=== PATIENT | female | born 1985 | race Asian ===

== ENCOUNTER → 2017-06-27 | Outpatient (CLI) | payer OTHER ==
[2017-06-27 18:04] LABS: MEAN CORPUSCULAR HEMOGLOBIN 28.1 pg (27.0-33.0); MEAN CORPUSCULAR HGB CONC 32.7 g/dl (32.0-36.5); PLATELET COUNT, AUTOMATED 174 10^3/uL (150-450); RED CELL DISTRIBUTION WIDTH 12.6 % (11.5-14.5); WHITE BLOOD COUNT 4.2 10^3/uL (4.0-10.0)
[2017-06-27 18:29] LABS: ALBUMIN 4.3 GM/DL (3.2-5.2); ALBUMIN/GLOBULIN RATIO 1.23 (1.00-1.93); ALKALINE PHOSPHATASE 34 U/L (45-117); ALT/SGPT 16 U/L (12-78); ANION GAP 7 MEQ/L (8-16); AST/SGOT 15 U/L (7-37); BILIRUBIN,TOTAL 0.6 MG/DL (0.2-1.0); BLOOD UREA NITROGEN 11 MG/DL (7-18); CARBON DIOXIDE LEVEL 30 MEQ/L (21-32); CHLORIDE LEVEL 105 MEQ/L (98-107); CREATININE FOR GFR 0.68 MG/DL (0.55-1.02); GLOMERULAR FILTRATION RATE > 60.0 (>60); GLUCOSE, FASTING 68 MG/DL (70-105); POTASSIUM SERUM 4.4 MEQ/L (3.5-5.1); SODIUM LEVEL 142 MEQ/L (136-145); TOTAL PROTEIN 7.8 GM/DL (6.4-8.2)
== END ==
LOC: M SMT 14:03
DX: Z13.0 Encounter for screening for diseases of the blood and blood-forming organs and certain disorders involving the immune mechanism (principal); Z13.29 Encounter for screening for other suspected endocrine disorder
CPT/HCPCS: 84443

== ENCOUNTER → 2017-07-01 | Outpatient (CLI) | payer OTHER | LOC: M RAD 16:18 | DX: N83.202 Unspecified ovarian cyst, left side (principal) | CPT/HCPCS: 76856 ==

== ENCOUNTER → 2017-10-29 | Outpatient (CLI) | payer OTHER | LOC: M RAD 14:34 | DX: D39.12 Neoplasm of uncertain behavior of left ovary (principal) ==

== ENCOUNTER → 2017-12-17 | Outpatient (CLI) | payer OTHER | LOC: M RAD 13:51 | DX: N83.202 Unspecified ovarian cyst, left side (principal); D39.11 Neoplasm of uncertain behavior of right ovary | CPT/HCPCS: 76856 ==

== ENCOUNTER → 2018-03-04 | Outpatient (CLI) | payer OTHER | LOC: M SMT 09:50 | DX: M25.542 Pain in joints of left hand (principal); W21.01XA Struck by football, initial encounter | CPT/HCPCS: 73130 ==

== ENCOUNTER 2018-04-16 01:36 | Day surgery (SDC) | payer OTHER ==
[2018-04-16] MEDS: NS 1,000 ML IV ×2 (02:00)
[2018-04-16 02:23] LABS: BASO % 0.2 % (0.0-1.0); HEMATOCRIT 35.2 % (36.0-47.0); HEMOGLOBIN 11.7 g/dl (12.0-15.5); IMMATURE GRANULOCYTE % 0.5 % (0-3.0); LYMPH # 1.7 10^3/uL (1.5-4.5); LYMPH % 7.6 % (24.0-44.0); MEAN CORPUSCULAR HEMOGLOBIN 29.9 pg (27.0-33.0); MEAN CORPUSCULAR HGB CONC 33.2 g/dl (32.0-36.5); MONO # 0.8 10^3/uL (0.0-0.8); MONO % 3.5 % (0.0-5.0); NEUTROPHILS # 19.6 10^3/uL (1.8-7.7); NEUTROPHILS % 88.2 % (36.0-66.0); PLATELET COUNT, AUTOMATED 254 10^3/uL (150-450); RED BLOOD COUNT 3.91 10^6/uL (4.00-5.40); RED CELL DISTRIBUTION WIDTH 12.7 % (11.5-14.5); WHITE BLOOD COUNT 22.2 10^3/uL (4.0-10.0)
[2018-04-16] MEDS: MORPHINE 4 MG/ML 1ML VIAL/SYRINGE (J2270) IV ×2 (02:51)
[2018-04-16 02:57] LABS: ALBUMIN 4.3 GM/DL (3.2-5.2); ALBUMIN/GLOBULIN RATIO 1.43 (1.00-1.93); ALKALINE PHOSPHATASE 33 U/L (45-117); ALT/SGPT 17 U/L (12-78); ANION GAP 13 MEQ/L (8-16); AST/SGOT 16 U/L (7-37); BILIRUBIN,DIRECT 0.2 MG/DL (0.0-0.2); BILIRUBIN,TOTAL 0.8 MG/DL (0.2-1.0); BLOOD UREA NITROGEN 13 MG/DL (7-18); CALCIUM LEVEL 8.9 MG/DL (8.5-10.1); CARBON DIOXIDE LEVEL 23 MEQ/L (21-32); CHLORIDE LEVEL 105 MEQ/L (98-107); CREATININE FOR GFR 0.81 MG/DL (0.55-1.30); GLOMERULAR FILTRATION RATE > 60.0 (>60); GLUCOSE, FASTING 194 MG/DL (70-100); LIPASE 100 U/L (73-393); POTASSIUM SERUM 4.1 MEQ/L (3.5-5.1); SODIUM LEVEL 141 MEQ/L (136-145); TOTAL PROTEIN 7.3 GM/DL (6.4-8.2)
[2018-04-16 03:09] LABS: CONTROL LINE HCG INT CTR LINE PRESENT; HCG, SERUM QUALITATIVE POSITIVE (NEGATIVE)
[2018-04-16] MEDS ORDERED: GASTROGRAFIN SOLUTION 30ML (Q9963) As Ordered ×2 (03:13)
[2018-04-16] MEDS: METOCLOPRAMIDE INJ 10MG/2ML VIAL (J2765) IV ×2 (03:16)
[2018-04-16] MEDS: GASTROGRAFIN SOLUTION 30ML (Q9963) PO ×8 (03:16→03:25)
[2018-04-16 03:24] LABS: HCG, SERUM QUANTITATIVE 13 MIU/ML
[2018-04-16] MEDS ORDERED: fentaNYL 250 MCG/5 ML INJECTION (J3010) As Ordered ×2 (04:51)
[2018-04-16] MEDS ORDERED: ROCURONIUM BROMIDE 50 MG/5 ML VIAL As Ordered ×2 (04:51)
[2018-04-16] MEDS ORDERED: LIDOCAINE 2% INJ 100 MG/5 ML SDV (FOR ANES.) As Ordered ×2 (04:51)
[2018-04-16] MEDS ORDERED: PROPOFOL 200 MG/20 ML VIAL As Ordered ×2 (04:51)
[2018-04-16] MEDS ORDERED: MIDAZOLAM INJ 2 MG/2 ML VIAL (J2250) As Ordered ×2 (04:51)
[2018-04-16] MEDS ORDERED: SUCCINYLCHOLINE 100 MG/5 ML SYRINGE (J0330) As Ordered ×2 (05:27)
[2018-04-16] MEDS ORDERED: PHENYLephrine HCL 500 MCG/5 ML (100MCG/ML) SYRINGE (J2370) As Ordered ×4 (05:38)
[2018-04-16] MEDS: BUPIVACAINE HCL 0.25% 30 ML VIAL As Ordered ×2 (05:39)
[2018-04-16] MEDS ORDERED: ONDANSETRON 4MG/2ML VIAL (J2405) As Ordered ×2 (06:03)
[2018-04-16] MEDS ORDERED: GLYCOPYRROLATE INJ 0.2 MG/ML 2 ML VIAL As Ordered ×2 (06:23)
[2018-04-16] MEDS ORDERED: NEOSTIGMINE 10 MG/10 ML VIAL (J2710) As Ordered ×2 (06:23)
[2018-04-16] MEDS ORDERED: KETOROLAC 60 MG/2 ML VIAL (J1885) As Ordered ×2 (06:23)
[2018-04-16] MEDS ORDERED: PERCOCET 5MG/325MG TAB PO ×6 (06:45→13:15)
[2018-04-16] MEDS ORDERED: ONDANSETRON 4MG/2ML VIAL (J2405) IV ×2 (06:45)
[2018-04-16] MEDS ORDERED: HYDROMORPHONE HCL 0.5 MG/ 0.5 ML SYRINGE (J1170 PER 1) IV ×2 (06:45)
[2018-04-16] MEDS ORDERED: fentaNYL 100 MCG/2 ML INJECTION (J3010) IV ×2 (06:45)
[2018-04-16 07:19] LABS: HEMATOCRIT 25.1 % (36.0-47.0); MEAN CORPUSCULAR HGB CONC 33.1 g/dl (32.0-36.5); MEAN CORPUSCULAR VOLUME 90.6 fl (80.0-96.0); RED BLOOD COUNT 2.77 10^6/uL (4.00-5.40); RED CELL DISTRIBUTION WIDTH 12.7 % (11.5-14.5); WHITE BLOOD COUNT 10.1 10^3/uL (4.0-10.0)
[2018-04-16 07:21] LABS: HEMOGLOBIN 8.3 g/dl (12.0-15.5); PLATELET COUNT, AUTOMATED 139 10^3/uL (150-450)
[2018-04-16 07:27] LABS: INR 1.21; PROTHROMBIN TIME 15.5 SECONDS (12.1-14.4)
[2018-04-16 07:28] LABS: FIBRINOGEN 172 MG/DL (221-452)
[2018-04-16] MEDS: LR 1,000 ML IV ×8 (08:45→20:18)
[2018-04-16 12:21] LABS: HEMATOCRIT 19.4 % (36.0-47.0); MEAN CORPUSCULAR HGB CONC 33.5 g/dl (32.0-36.5); MEAN CORPUSCULAR VOLUME 89.4 fl (80.0-96.0); PLATELET COUNT, AUTOMATED 120 10^3/uL (150-450); RED BLOOD COUNT 2.17 10^6/uL (4.00-5.40); RED CELL DISTRIBUTION WIDTH 12.7 % (11.5-14.5)
[2018-04-16 12:24] LABS: HEMOGLOBIN 6.5 g/dl (12.0-15.5)
[2018-04-16 12:29] LABS: INR 1.32; PROTHROMBIN TIME 16.6 SECONDS (12.1-14.4)
[2018-04-16 12:35] LABS: FIBRINOGEN 162 MG/DL (221-452)
[2018-04-16] MEDS: KETOROLAC 30 MG/ML VIAL (J1885) IV ×4 (16:14→20:35)
[2018-04-16] MEDS: ACETAMINOPHEN 500 MG TAB PO ×2 (18:17)
[2018-04-17 00:45] LABS: IMMEDIATE SPIN CROSSMATCH 1 4
[2018-04-17] MEDS: KETOROLAC 30 MG/ML VIAL (J1885) IV ×2 (02:37)
[2018-04-17] MEDS: LR 1,000 ML IV ×2 (07:00)
[2018-04-17 07:07] LABS: HEMATOCRIT 32.9 % (36.0-47.0); MEAN CORPUSCULAR HEMOGLOBIN 29.6 pg (27.0-33.0); MEAN CORPUSCULAR HGB CONC 33.7 g/dl (32.0-36.5); MEAN CORPUSCULAR VOLUME 87.7 fl (80.0-96.0); RED BLOOD COUNT 3.75 10^6/uL (4.00-5.40); RED CELL DISTRIBUTION WIDTH 13.6 % (11.5-14.5); WHITE BLOOD COUNT 4.1 10^3/uL (4.0-10.0)
[2018-04-17 07:34] LABS: HCG, SERUM QUANTITATIVE 21 MIU/ML
[2018-04-17 08:06] LABS: HEMOGLOBIN 11.1 g/dl (12.0-15.5); IMMATURE PLATELET FRACTION % 4.7 % (0.0-9.6); PLATELET COUNT, AUTOMATED 84 10^3/uL (150-450)
== END 2018-04-17 11:10 | disposition home or self-care (01) ==
LOC: M PED 04-17 11:10 → M SDC 04-17 11:10 → M ED 01:36 → M SDC 01:37 → M ED 05:08 → M PED 08:15 → M SDC 05:00 → M PED 08:15 → M SDC 04-17 11:10
DX: N83.12 Corpus luteum cyst of left ovary (principal); N83.8 Other noninflammatory disorders of ovary, fallopian tube and broad ligament
CPT/HCPCS: 58662

== ENCOUNTER → 2018-04-20 | Outpatient (CLI) | payer OTHER ==
[2018-04-20 14:33] LABS: HEMATOCRIT 36.5 % (36.0-47.0); HEMOGLOBIN 12.5 g/dl (12.0-15.5); MEAN CORPUSCULAR HEMOGLOBIN 30.3 pg (27.0-33.0); MEAN CORPUSCULAR HGB CONC 34.2 g/dl (32.0-36.5); MEAN CORPUSCULAR VOLUME 88.4 fl (80.0-96.0); PLATELET COUNT, AUTOMATED 151 10^3/uL (150-450); RED BLOOD COUNT 4.13 10^6/uL (4.00-5.40); RED CELL DISTRIBUTION WIDTH 12.9 % (11.5-14.5); WHITE BLOOD COUNT 4.2 10^3/uL (4.0-10.0)
[2018-04-20 15:24] LABS: ALBUMIN 3.6 GM/DL (3.2-5.2); ALBUMIN/GLOBULIN RATIO 1.16 (1.00-1.93); ALKALINE PHOSPHATASE 29 U/L (45-117); ALT/SGPT 22 U/L (12-78); ANION GAP 7 MEQ/L (8-16); AST/SGOT 17 U/L (7-37); BILIRUBIN,TOTAL 0.7 MG/DL (0.2-1.0); BLOOD UREA NITROGEN 8 MG/DL (7-18); CALCIUM LEVEL 8.9 MG/DL (8.5-10.1); CARBON DIOXIDE LEVEL 28 MEQ/L (21-32); CHLORIDE LEVEL 106 MEQ/L (98-107); CREATININE FOR GFR 0.58 MG/DL (0.55-1.30); GLOMERULAR FILTRATION RATE > 60.0 (>60); GLUCOSE, FASTING 87 MG/DL (70-100); HCG, SERUM QUANTITATIVE 17 MIU/ML; POTASSIUM SERUM 4.1 MEQ/L (3.5-5.1); SODIUM LEVEL 141 MEQ/L (136-145); TOTAL PROTEIN 6.7 GM/DL (6.4-8.2)
== END ==
LOC: M SMT 11:08
DX: O20.0 Threatened abortion (principal); Z3A.00 Weeks of gestation of pregnancy not specified
CPT/HCPCS: 80053

== ENCOUNTER → 2018-04-22 | Outpatient (CLI) | payer OTHER ==
[2018-04-22 17:36] LABS: HCG, SERUM QUANTITATIVE 7 MIU/ML
== END ==
LOC: M SMT 10:21
DX: O20.0 Threatened abortion (principal)
CPT/HCPCS: 84702

== ENCOUNTER → 2018-12-03 | Outpatient (CLI) | payer OTHER ==
[~2018-12-03] MED LIST: PERCOCET PO; PNVTAB4
== END ==
LOC: M LRY 13:55
PROVIDERS: ATTEND Obstetrics & Gynecology
DX: N91.2 Amenorrhea, unspecified (principal)

== ENCOUNTER → 2018-12-05 | Outpatient (CLI) | payer OTHER | LOC: M LRY 12:48 | PROVIDERS: ATTEND Obstetrics & Gynecology | DX: N91.2 Amenorrhea, unspecified (principal) ==

== ENCOUNTER → 2019-01-14 | Outpatient (CLI) | payer OTHER ==
[2019-01-14 20:46] LABS: BASO % 0.3 % (0.0-1.0); EOS % 0.6 % (0.0-3.0); HEMATOCRIT 37.4 % (36.0-47.0); HEMOGLOBIN 12.8 g/dl (12.0-15.5); LYMPH # 1.4 10^3/uL (1.5-4.5); LYMPH % 21.9 % (24.0-44.0); MEAN CORPUSCULAR HEMOGLOBIN 30.1 pg (27.0-33.0); MEAN CORPUSCULAR HGB CONC 34.2 g/dl (32.0-36.5); MONO # 0.4 10^3/uL (0.0-0.8); MONO % 5.8 % (0.0-5.0); NEUTROPHILS # 4.5 10^3/uL (1.8-7.7); NEUTROPHILS % 71.2 % (36.0-66.0); PLATELET COUNT, AUTOMATED 178 10^3/uL (150-450); RED BLOOD COUNT 4.25 10^6/uL (4.00-5.40); WHITE BLOOD COUNT 6.4 10^3/uL (4.0-10.0)
[2019-01-14 22:22] LABS: GC DNA AMPLIFICATION NEGATIVE (NEGATIVE)
[2019-01-15 10:16] LABS: HEPATITIS B SURFACE ANTIGEN NEGATIVE (NEGATIVE); HEPATITIS C VIRUS ABY INDEX 0.2 INDEX (<0.8); RUBELLA IgG QUALITATIVE IMMUNE (IMMUNE)
[2019-01-15 13:14] LABS: CHLAMYDIA DNA AMPLIFICATION NEGATIVE (NEGATIVE)
[2019-01-15 13:15] LABS: HIV 1&2 SCREEN CENTAUR NEGATIVE (NEGATIVE)
== END ==
LOC: M LRY 16:46
PROVIDERS: ATTEND Advanced Practice Midwife
DX: Z34.81 Encounter for supervision of other normal pregnancy, first trimester (principal); Z3A.00 Weeks of gestation of pregnancy not specified

== ENCOUNTER → 2019-03-11 | Outpatient (CLI) | payer OTHER ==
--- NOTE | 2019-03-11 10:48 | REP ---
OB ULTRASOUND: Real-time sonographic evaluation of the gravid uterus is performed. There is a single living intrauterine gestation. The estimated gestational age is 18 weeks 4 days, EDC 08/08/2019. Today's measurements indicate appropriate growth. Biometry and Growth: BPD 44 mm = 19 weeks 2 days, 69th percentile HC 162 mm = 19 weeks 0 days, 62nd percentile AC 134 mm = 18 weeks 6 days, 56th percentile FL 30 mm = 19 weeks 2 days, 67th percentile HC/AC ratio 1.21 within the normal range. Estimated weight 272 grams, 64th percentile. SEEN/GROSSLY UNREMARKABLE Lateral ventricles Yes Posterior fossa Yes Upper lip No Four-chamber heart Yes LVOT Yes RVOT Yes Stomach Yes Cord insertion Yes Three vessel cord Yes Kidneys Yes Bladder Yes Spine No Cervical length: Closed and measures 3.2 cm in length. heart rate: 150 beats per minute. position: Vertex. Placenta: Anterior and grade 1 with no previa or abruption. Amniotic fluid: Within normal limits. Electronically Signed by Lito Sánchez MD 03/11/2019 02:06 P
== END ==
LOC: M RAD 07:34
PROVIDERS: ATTEND Advanced Practice Midwife
DX: Z34.82 Encounter for supervision of other normal pregnancy, second trimester (principal); Z36.89 Encounter for other specified antenatal screening; Z3A.18 18 weeks gestation of pregnancy

== ENCOUNTER → 2019-03-26 | Outpatient (CLI) | payer OTHER ==
--- NOTE | 2019-03-26 17:06 | REP ---
Obstetric ultrasound for anatomy follow-up: On the prior study dated 03/11/2019 the facial features and spine could not be optimally demonstrated because of position. On the study today the upper lip, facial profile and face are optimally demonstrated and are unremarkable. The spine again could not be optimally demonstrated because of position. The remainder of the anatomy is unremarkable as previously. There is again a single intrauterine gestation. Fetus is in a breech presentation. There is movement and cardiac activity. The heart rate is 147 beats minute. The placenta is anterior. There is no placenta previa or abruptio. The placenta is grade zero. The amniotic fluid volume subjectively is normal. The cervix measures 4.5 cm length. Gestational age by today's ultrasound is 20 weeks 5 days/ANNALEE 08/08/2009. Gestational age by the first ultrasound is 21 weeks 2 days/ANNALEE 08/04/2009. Gestational age by LMP is 20 weeks 5 days/ANNALEE 08/08/2009. weight is 367 grams/0 pounds, 12 ounces. This is the 44th percentile for 20 weeks 5 days. Electronically Signed by Lito Yang MD 03/26/2019 04:57 P
== END ==
LOC: M RAD 15:25
PROVIDERS: ATTEND Advanced Practice Midwife
DX: Z34.83 Encounter for supervision of other normal pregnancy, third trimester (principal); Z36.89 Encounter for other specified antenatal screening; Z3A.20 20 weeks gestation of pregnancy

== ENCOUNTER → 2019-04-09 | Outpatient (CLI) | payer OTHER ==
--- NOTE | 2019-04-09 08:50 | REP ---
Obstetric ultrasonography for anatomy follow-up: On the prior study of 03/11 2019, the upper lip and spine were not optimally demonstrated. On the followup study of 03/26/2019 the upper lip was adequately demonstrated and unremarkable . The spine was again suboptimal. On the study today the spine is adequately demonstrated and unremarkable. The upper lip and facial profile are not optimally demonstrated today but had been optimally demonstrated previously and were unremarkable. The remainder of the anatomy today is unremarkable and unchanged from the prior studies. There is a single intrauterine gestation in a vertex presentation. There is movement and cardiac activity. The heart rate is 147 beats minute per The placenta is anterior without previa or abruptio. The placenta is grade 1. The amniotic fluid volume subjectively is normal. Gestational age by today's ultrasound is 22 weeks 5 days/ANNALEE 08/08/2019. Gestational age by the first ultrasound is 23 weeks 2 days/ANNALEE 08/04/2019. Gestational age by LMP is 22 weeks 5 days/ANNALEE 08/08/2019. weight is 503 grams/1 pound, 1 ounce. This is the 37th percentile for 22 weeks 5 days. Electronically Signed by Lito Yang MD 04/09/2019 08:41 A
== END ==
LOC: M RAD 07:18
PROVIDERS: ATTEND Advanced Practice Midwife
DX: Z34.82 Encounter for supervision of other normal pregnancy, second trimester (principal)